=== PATIENT | female | born 1980 | race Caucasian/White ===

== ENCOUNTER 2023-11-26 12:10 | Emergency (ER) | payer OTHER ==
[~2023-11-26] VITALS: Ht 170.2 cm; Wt 75.0 kg
[2023-11-26 12:14] VITALS: O2SAT 100
[2023-11-26] MEDS: ACETAMINOPHEN 325MG TABLET PO STA (12:17)
[2023-11-26] MEDS ORDERED: GABA100C MT (15:06)
[2023-11-26] MEDS: IBUPROFEN 600MG TABLET PO ONE (21:10)
[2023-11-26] MEDS: ACETAMINOPHEN 325MG TABLET PO ONE (21:53)
[2023-11-27 00:18] VITALS: BP 154/91; PULSE 107; RESP 16; TEMP 98.6
== END 2023-11-27 00:25 | disposition home or self-care (01) ==
LOC: ER 12:10
DX: M79.18 Myalgia, other site (principal); Z88.8 Allergy status to other drugs, medicaments and biological substances; V98.8XXA Other specified transport accidents, initial encounter; Y93.89 Activity, other specified; Y92.89 Other specified places as the place of occurrence of the external cause; Y99.8 Other external cause status
CPT/HCPCS: 71045; 74018; 99284